=== PATIENT | male | born 1945 | race Caucasian/White ===

== ENCOUNTER 2022-06-06 16:54 | Emergency (ER) | payer MEDICARE, OTHER, SELFPAY ==
--- NOTE | ~2022-06-06 | CT_ITS ---
EXAMINATION: CT brain wo con DATE: 06/06/2022 17:46 INDICATION: Head injury. TECHNIQUE: Computed tomography (CT) of the head was performed without intravenous contrast. The mA wa s adjusted according to patient size. Iterative reconstruction technique was employed. The dose-lengt h product was 605.33 mGy-cm. COMPARISON: None FINDINGS: There are changes of left-sided craniotomy. There is low attenuation in the left parietal l obe and adjacent portions of the left frontal, temporal, and occipital lobes. There is no acute ische garth infarct or intracranial hemorrhage. The ventricles are normal in size. The mastoid air cells are normal. The paranasal sinuses are clear. The orbits are normal. IMPRESSION: 1. Low-attenuation in the left parietal lobe and adjacent portions of the left frontal, temporal, and occipital lobes. Given the history of brain cancer, these findings may represent changes of resect ion and radiation therapy. Residual malignancy is not excluded. Correlate with outside imaging. Reviewed, dictated and finalized at location A. IMPRESSION: 1. Low-attenuation in the left parietal lobe and adjacent portions of the left frontal, temporal, and occipital lobes. Given the history of brain cancer, th rachid findings may represent changes of resection and radiation therapy. Residual malignancy is not excluded. Correlate with outside imaging.
--- NOTE | ~2022-06-06 | CT_ITS ---
EXAMINATION: CT cervical spine wo con DATE: 06/06/2022 17:49 INDICATION: fall, head injury TECHNIQUE: Computed tomography (CT) of the cervical spine was performed without intravenous contrast. Automated exposure control and iterative reconstruction technique were employed. The dose-length pro duct was 408.94 mGy-cm. COMPARISON: None. FINDINGS: Vertebral Body Alignment: Intact. . Craniocervical and atlantoaxial alignment: Moderate degenerative change. Alignment intact. Osseous structures/fracture: No evidence of a lytic or blastic process in the visualized spine. No e vidence of acute fracture. . Cervical soft tissues: The paraspinal soft tissues planes are maintained. Biapical pleural scarring. Degenerative changes: Degenerative changes, without severe neural foraminal or central canal narrowin g. IMPRESSION: No acute fracture or traumatic malalignment in the cervical spine. Reviewed, dictated and finalized at location K.
[2022-06-06 16:59] VITALS: BP 137/71; PULSE 60; RESP 16; TEMP 36.6; O2SAT 98
--- NOTE | 2022-06-06 17:28 | ED.HEATRA ---
HPI - Head Injury General Chief complaint: Head Injury Stated complaint: fall - head injury, denies LOC Time Seen by Provider: 06/06/22 17:10 Source: patient and old records reviewed Mode of arrival: ambulatory Limitations: no limitations History of Present Illness HPI Narrative: Patient is a 76 y/o male who presents to the ED with c/o head injury. Patient reports he was walking down the stairs this afternoon and carrying things in both hands when he missed a step and fell. He hit his head on the top of the door frame. He sustained a small laceration to the top of his head. No LOC. Son at bedside reports patient is currently undergoing treatment for brain cancer (glioblastoma s/p resection and radiation) through [facility] under Dr. Draper. Son reports patient has had recent intracranial swelling noted on scans and is currently on steroid therapy. He occasionally has issues with spatial awareness which they have attributed to the swelling. Patient denies any prodromal symptoms prior to the fall. He has been ambulatory since the accident. He denies any other areas of pain, denies neck pain, back pain, hip pain, dizziness, lightheadedness, vision changes, nausea, vomiting, chest pain, difficulty breathing. Tetanus status unknown. No blood thinners. Related Data Allergies Allergy/AdvReac Type Severity Reaction Status Date / Time No Known Allergies Allergy Verified 06/06/22 17:05 Review of Systems Review of Systems: CONSTITUTIONAL: Denies fever, chills, or sweats. EYES: Denies visual changes. CARDIOVASCULAR: Denies chest pain. RESPIRATORY: Denies dyspnea. GASTROINTESTINAL: Denies abdominal pain, nausea, vomiting. SKIN: See HPI. MUSCULOSKELETAL: Denies back pain, neck pain, joint pain, or myalgia. NEUROLOGIC: See HPI. All systems reviewed & are unremarkable except as noted in HPI and below PMFSH Past Medical History Medical History (Updated 06/06/22 @ 18:09 by Sallie Spicer PA-C) GERD (gastroesophageal reflux disease) Glioblastoma Hyperlipidemia Surgical History Surgical History (Updated 06/06/22 @ 17:58 by Sallie Spicer PA-C) History of brain surgery Social History Social History (Updated 06/06/22 @ 17:59 by Sallie Spicer PA-C) Smoking status: Never smoker Exam Narrative: GENERAL: Well appearing, well-nourished, non-toxic, in no acute distress. HEAD: Normocephalic. Approx. 1.5 cm laceration to right parietal scalp, no active bleeding. EYES: PERRLA/EOMI, conjunctiva clear. NECK: Supple. No adenopathy, no masses. No midline spinal tenderness. RESPIRATORY: Airway patent, respirations nonlabored. Clear to auscultation bilaterally, no rales, rhonchi, wheezing. CARDIOVASCULAR: Regular rate and rhythm without murmurs, rubs, or gallops. Radial pulses 2+ and equal bilaterally. ABDOMINAL: Soft, nontender, nondistended, no hepatosplenomegaly. Normoactive BS. MUSCULOSKELETAL: Moves all extremities. Strength/ROM intact without gross deformities. No midline thoracic or lumbar spinal tenderness. SKIN: Warm, dry, normal color. No rashes. NEURO: A&O X3. Speech clear. Cranial nerves II-XII grossly intact. Steady gait. No ataxic movements. Strength 5 out of 5 in upper and lower extremities bilaterally. No focal deficits. 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 PSYCHIATRIC: Appropriate mood and affect. Normal interaction. Course Vital Signs Vital signs: Vital Signs Temperature 98 F 06/06/22 16:59 Pulse Rate 60 06/06/22 16:59 Respiratory Rate 16 06/06/22 16:59 Blood Pressure 137/71 06/06/22 16:59 Pulse Oximetry 98 06/06/22 16:59 Oxygen Delivery Room Air 06/06/22 16:59 Temperature 98 F 06/06/22 16:59 Pulse Rate 71 06/06/22 18:33 Respiratory Rate 18 06/06/22 18:33 Blood Pressure 132/87 06/06/22 18:33 Pulse Oximetry 99 06/06/22 18:33 Oxygen Delivery Room Air 06/06/22 16:59 Procedures Laceration Laceration 1: Date: 06/06/22 Time: 18:10
[2022-06-06] MEDS: TETANUS,DIPHTHERIA,AC PERTUSSIS ADULT (0.5 ML) BOOSTRIX IM (18:10)
[2022-06-06 18:33] VITALS: BP 132/87; PULSE 71; RESP 18; O2SAT 99
== END 2022-06-06 18:34 | disposition home or self-care (01) ==
PROVIDERS: Emergency Provider Physician Assistant; PCP Family Medicine
DX: S01.01XA Laceration without foreign body of scalp, initial encounter (principal); C71.9 Malignant neoplasm of brain, unspecified; E78.5 Hyperlipidemia, unspecified; Z23 Encounter for immunization; W10.8XXA Fall (on) (from) other stairs and steps, initial encounter
CPT/HCPCS: 12001; 70450; 72125; 90471; 90715; 99284